=== PATIENT | male | born 1990 | race Caucasian/White ===

== ENCOUNTER 2018-08-30 10:50 | Emergency (ER) | payer OTHER, MEDICAID ==
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
[2018-08-30 13:17] VITALS: BP 125/79
== END 2018-08-30 13:17 | disposition home or self-care (01) ==
LOC: ER 10:50
DX: S80.02XA Contusion of left knee, initial encounter (principal); S16.1XXA Strain of muscle, fascia and tendon at neck level, initial encounter; S09.90XA Unspecified injury of head, initial encounter; M54.9 Dorsalgia, unspecified; F17.200 Nicotine dependence, unspecified, uncomplicated; V48.6XXA Car passenger injured in noncollision transport accident in traffic accident, initial encounter
CPT/HCPCS: 99284; 73564; 72110; 72070; 70450; 72125; L0120